=== PATIENT | female | born 1955 | race Caucasian/White ===

== ENCOUNTER 2020-07-27 15:25 | Emergency (ER) | payer OTHER, MEDICAID ==
[~2020-07-27] VITALS: Ht 152.4 cm; Wt 90.7 kg
[2020-07-27 15:56] VITALS: BP 162/85
--- NOTE | 2020-07-27 16:00 | NUR ---
C/O COUGH , BODY ACHE 4/10 X 3 DAYS, LOSS OF TASTE/SMELL X 2 DAYS. BLOOD SUGAR 167 AT THIS TIME. COVID TESTED AT URGENT CARE 3 DAYS: PENDING. MED HX: DM, HTN, HLD
--- NOTE | 2020-07-27 16:03 | NUR ---
COVID SWAB SENT TO LAB.
[2020-07-27 17:14] VITALS: BP 162/85
--- NOTE | 2020-07-27 17:14 | NUR ---
Patient discharged with v/s stable. Written and verbal after care instructions given and explained. Patient alert, oriented and verbalized understanding of instructions. Ambulatory with steady gait. All questions addressed prior to discharge. ID band removed. Patient advised to follow up with PMD. Rx of ACETMINOPHEN, PROMETHAZINE & FLONASE given. Patient educated on indication of medication including possible reaction and side effects. Opportunity to ask questions provided and answered.
--- NOTE | 2020-07-28 20:17 | NUR ---
Positive COVID-19 test results were received from lab. A copy of the test results were given to Infection
== END 2020-07-27 17:14 | disposition home or self-care (01) ==
LOC: MED 15:25
DX: B34.9 Viral infection, unspecified (principal); Z20.828 Contact with and (suspected) exposure to other viral communicable diseases; I10 Essential (primary) hypertension
CPT/HCPCS: 99283; U0003